=== PATIENT | male | born 1955 | race Two or more races ===

== ENCOUNTER 2024-03-31 20:27 | Emergency (ER) | payer OTHER ==
[~2024-03-31] VITALS: Ht 180.3 cm; Wt 122.5 kg
[2024-03-31] MEDS ORDERED: TOPROL XL25 M1 PO (21:59)
[2024-03-31] MEDS ORDERED: ALPRAZOLAM ODT1 MG PO (22:00)
[2024-03-31] MEDS ORDERED: NORVASC5 MG PO (22:00)
[2024-03-31] MEDS ORDERED: ZETIA10 MG PO (22:00)
[2024-03-31] MEDS ORDERED: ZOLOFT25 MG PO (22:00)
[2024-03-31] MEDS ORDERED: ROSUVASTATIN CAL5 MG PO (22:01)
[2024-03-31] MEDS ORDERED: FOSINOPRIL-HCT1 EACH PO (22:01)
[2024-04-01] MEDS ORDERED: KETOROLAC TROMETHAMINE 60 MG VIAL IM STA (00:24)
[2024-04-01] MEDS ORDERED: ACETAMINOPHEN 500 MG GEL..CAP PO STA (00:24)
[2024-04-01] MEDS ORDERED: KETOROLAC TROMETHAMINE 60 MG VIAL IM ONE (01:11)
[2024-04-01] MEDS ORDERED: ACETAMINOPHEN 500 MG GEL..CAP PO ONE (01:11)
== END 2024-04-01 01:46 | disposition home or self-care (01) ==
LOC: ER 20:27
DX: S52.592A Other fractures of lower end of left radius, initial encounter for closed fracture (principal); W19.XXXA Unspecified fall, initial encounter; Y93.89 Activity, other specified; Y92.89 Other specified places as the place of occurrence of the external cause; Y99.8 Other external cause status
CPT/HCPCS: 73100; 96372; 99283; J1885

== ENCOUNTER 2024-04-08 06:12 | Day surgery (SDC) | payer OTHER ==
[2024-04-03 13:32] LABS: HEMATOCRIT 42.4 % (39.0-48.0); HEMOGLOBIN 14.4 g/dL (13-16.00); MEAN CELL VOLUME 90.4 fL (80.0-100.00); MEAN CORPUSCULAR HEMOGLOBIN 30.7 pg (27.00-32.0); PLATELET COUNT 241 K/uL (150-450); RED CELL DISTRIBUTION WIDTH 13.3 % (11.5-14.5)
[2024-04-03 13:34] LABS: PH,URINE 5.5 (5.0-8.0); URINE APPEARANCE Clear; URINE BILIRRUBIN Negative (NEGATIVE); URINE BLOOD Negative; URINE COLOR Yellow; URINE GLUCOSE Negative (NEGATIVE); URINE KETONE Negative (NEGATIVE); URINE LEUKOCYTE Negative; URINE NITRATE Negative; URINE PROTEIN Negative (NEGATIVE); URINE UROBILINOGEN 0.2 E.U./dl
[2024-04-03 13:38] LABS: URINE EPITHELIAL CELLS 5.8 uL (0.0-38.8); URINE WBC 1.8 uL (0.0-23.2)
[2024-04-03 13:42] LABS: URINE BACTERIA 3.6 uL (0.0-1933); URINE CAST 0.29 uL (0.0-1.40)
[2024-04-03 14:03] LABS: INR 1.01; PARTIAL THROMBOPLASTIN TIME 26.5 SECONDS (22.0-34.0)
[2024-04-03 14:30] LABS: ALBUMIN 3.9 gm/dL (3.4-5.0); BILIRUBIN TOTAL 0.6 mg/dL (0.3-1.2); CALCIUM 9.6 mg/dL (8.5-10.1); CHOL HDL RATIO 2.4 (0-5.0); CREATININE SERUM 0.62 mg/dL (0.70-1.30); GFR 128.62; GLOBULINA 3.5 G/DL (2.4-3.5); POTASSIUM 4.44 mEq/L (3.5-5.1); TOTAL PROTEIN 7.4 gm/dL (6.4-8.2)
[2024-04-03 15:22] VITALS: BP 135/79
[~2024-04-08] VITALS: Ht 180.3 cm; Wt 122.5 kg
[~2024-04-08 06:12] MED LIST: ALPRAZOLAM ODT1 MG PO; FOSINOPRIL-HCT1 EACH PO; NORVASC5 MG PO; ROSUVASTATIN CAL5 MG PO; TOPROL XL25 M1 PO; ZETIA10 MG PO; ZOLOFT25 MG PO
[2024-04-08] MEDS ORDERED: CEFAZOLIN SODIUM 1,000 MG VIAL ONE (15:43)
[2024-04-08] MEDS ORDERED: SUGAMMADEX SODIUM 200 MG/2 ML VIAL IV ONE (18:14)
[2024-04-08] MEDS ORDERED: ALEVE220 M1 PO (19:18)
[2024-04-08] MEDS ORDERED: DUI500 PO (19:18)
[2024-04-08] MEDS ORDERED: PERCOCET 5-3251 EACH PO (19:18)
== END 2024-04-08 20:15 | disposition home or self-care (01) ==
LOC: CIR.AMB 06:12
PROVIDERS: ATTEND Orthopaedic Surgery
DX: S52.532A Colles' fracture of left radius, initial encounter for closed fracture (principal); S52.692A Other fracture of lower end of left ulna, initial encounter for closed fracture; M81.0 Age-related osteoporosis without current pathological fracture; I10 Essential (primary) hypertension; E78.5 Hyperlipidemia, unspecified
CPT/HCPCS: 25609; 25652; 25101; L8699